=== PATIENT | male | born 1950 | race Caucasian/White ===

== ENCOUNTER 2024-03-31 13:31 | Outpatient (REF) | payer MEDICARE, SELFPAY ==
--- NOTE | ~2024-03-31 | XR_ITS ---
EXAMINATION: XR LUMBAR SPINE CLINICAL INFORMATION: Reason for Exam M48.061 - Spinal stenosis, lumbar region without neurogenic claudication COMPARISON: None TECHNIQUE: Frontal lateral and coned-down L5-S1 frontal lateral,, flexion-extension, 4 views. FINDINGS: Five [id number] lumbar vertebrae were identified maintaining normal height, mild levoscoliosis, mild posterior spondylolisthesis of L1 on L2, L2 on L3 and L3 on L4,. Loss of disc height and developed osteophytes from the edges of endplates at multiple levels suggest underlying severe degenerative disc disease. Paravertebral soft tissues are unremarkable. There are radiolucencies, most likely superimposed bowel gas.. No radiographic evidence of osteolytic or osteoblastic lesions. XR/XR lumbar spine 4V min IMPRESSION: * No fracture. * Mild levoscoliosis. * Loss of disc height and developed osteophytes from the edges of endplates suggest underlying severe degenerative disc disease.
== END 2024-03-31 13:32 | disposition home or self-care (01) ==
LOC: HO.HOSX 13:31
PROVIDERS: Visit Provider Physician Assistant
DX: M48.061 Spinal stenosis, lumbar region without neurogenic claudication (principal)
CPT/HCPCS: 72110; 99202

== ENCOUNTER 2024-03-31 13:31 | Outpatient (AMB) | payer MEDICARE, SELFPAY ==
--- NOTE | 2024-03-31 14:26 | HO.SPINEOV ---
Intake Visit Reasons: Lumbar radiculopathy Intake Note: Mr. Severino is here today c/o back pain. 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 It does not go below his knee. He underwent physical therapy for 6 weeks. He is tried activity modifications. He is tried cnxc-iiz-mrdnedy medications such as Tylenol and leave but nothing touches it. He has not done any injections yet. The pain is aggravated with standing and walking and goes away when he sits. He underwent an MRI showing severe stenosis at L3-4 and L4-5 as well as left L4 foraminal stenosis and he comes in today see us for an evaluation. PMH: He is reasonably healthy, he has had both knees replaced and did well with that, history of BPH, hypertension but denies any problem with his heart, lungs, liver, kidneys, intestine, cancer, bleeding disorders, previous lumbar surgery, abdominal surgery etc.. Social hx: He does not smoke, drink or use any recreational drugs Medications: finasteride, aspirin, atenolol, hydrochlorothiazide Allergies: none Physical exam: awake alert oriented no acute distress, he has full strength of bilateral upper and lower extremities, absent reflexes at the patella bilaterally with surgical scars on both knees that are well healed. Imaging review: Lumbar MRI done at [facility] shows severely degenerative discs at L1-2,L2-3, L3-4 and L4-5, he has severe stenosis at L4-5, moderate to severe stenosis at L3-4. He has severe left L4 foraminal stenosis. I did standing flexion-extension x-rays here in the office and this does not show any signs of instability but in the vertical position there is a slight accentuation and a small dextroscoliotic curvature due to collapse of the left L4-5 disc space. Impression: 73-year-old male presents with chronic low back pain, but acutely he has been dealing with the last few months a left L4 radiculopathy which goes down into his knee. He is very clear about the fact that his back pain is not the reason he has here in the office and it would not have been a reason to even have an MRI. The primary complaint here is the left buttock going into the left anterior lateral thigh pain. He has severe stenosis at L3-4 and L4-5 with severe left L4 foraminal stenosis secondary to disc collapse on the left side. I reviewed all his imaging with him and discussed the fact that there are 2 potential approaches here. The 1st would be a simple decompression where the L3-4 and L4-5 spaces could be cleaned up with a simple decompression and a left L4 foraminotomy. However, we would need to be aware that there is the potential of recurrent narrowing of the L4 foramen because of the severe disc degeneration. This may ultimately require placement of a interbody cage and pedicle screw fixation. I will review all the imaging and get back to the patient with a final plan once Dr. Woods has a chance to review his case. The patient is interested in moving forward with surgery because of the amount of pain he is in so we will try to expedite things for him. Thank you for allowing us to care for your patient. The total time spent with this visit with this patient was 45 minutes reviewing history, physical exam, lumbar MRI imaging review, and implementation of treatment plan or further diagnostic testing Jeferson Woods MD,PhD [facility] Orders: Orders XR lumbar spine 4V min Today M48.061 - Spinal stenosis, lumbar region without neurogenic claudication Coding Level of Care Code New Pt Level 4 (57012) Diagnoses Lumbar stenosis M48.061
== END 2024-03-31 15:22 | disposition home or self-care (01) ==
PROVIDERS: Referring Provider Internal Medicine; Visit Provider Physician Assistant
DX: M48.061 Spinal stenosis, lumbar region without neurogenic claudication (principal)
CPT/HCPCS: 99204

== ENCOUNTER 2024-06-18 12:37 | Outpatient (AMB) | payer MEDICARE, SELFPAY ==
--- NOTE | 2024-06-18 12:43 | HO.SPINEOV ---
Intake Visit Reasons: Discuss surgery Intake Note: Mr. Severino is here to Discuss Surgery. Allergies No Known Allergies Allergy (Verified 06/18/24 12:59) Assessment & Plan Assessment & Plan (1) Lumbar stenosis: Code(s): M48.061 - Spinal stenosis, lumbar region without neurogenic claudication Category: Medical Qualifiers: Neurogenic claudication status: with neurogenic claudication Qualified Code(s): M48.062 - Spinal stenosis, lumbar region with neurogenic claudication Plan: On 06/18/2024 I saw for preoperative visit Landon Severino. He is scheduled to undergo a left L3-4 and L4-5 decompression with L4 foraminotomy. Today's states his symptoms have predominantly on the left side but the right side is not completely symptom free. I explained to him that I will also decompress the right side through the left-sided approach. All questions were answered. He is scheduled for 06/26/2024. He will discontinue his baby aspirin. I spent 15 minutes in his consult answering questions. Red Woods MD, PhD Spine Fellowship Trained Neurosurgeon Director, [facility] Coding Level of Care Code Est Pt Level 2 (56277) Diagnoses Spinal stenosis of lumbar region with neurogenic claudication M48.062 Neurogenic claudication status: with neurogenic claudication
== END 2024-06-18 13:27 | disposition home or self-care (01) ==
PROVIDERS: Visit Provider Neurological Surgery
DX: M48.062 Spinal stenosis, lumbar region with neurogenic claudication (principal)
CPT/HCPCS: 99212

== ENCOUNTER → 2024-06-18 12:37 | Outpatient (BNVA) | payer MEDICARE, SELFPAY | PROVIDERS: Visit Provider Neurological Surgery | DX: M48.062 Spinal stenosis, lumbar region with neurogenic claudication (principal) | CPT/HCPCS: 99212 ==

== ENCOUNTER 2024-06-26 05:45 | Day surgery (SDC) | payer MEDICARE, SELFPAY ==
[2024-06-12 08:24] VITALS: BMI 35.3
--- NOTE | 2024-06-24 13:48 | P.CONAN_ITS ---
Documented by User: Claudine Aguirre NP 06/25/24 10:00 HPI - Anesthesia Eval Consult details Narrative: 73yo M for LEFT L3-4 Decompression and LEFT L4-5 Foraminotomy Medically optimized per PCP [facility] Active Problems Active Problems: All Active Problems Lumbar stenosis (Acute) Past Medical History Medical History Pre-diabetes Mixed hyperlipidemia Osteoarthritis Lumbar radiculopathy BPH (benign prostatic hyperplasia) HTN (hypertension) Surgical History Surgical History History of carpal tunnel release H/O colonoscopy History of total bilateral knee replacement Social History Social History Are you a primary laboratory animal care veterinarian to a significant other at home: No Do you presently have visiting nurse or other home services: No Patient Tobacco Use Status: Never used Tobacco Use of substances other than those prescribed or required for medical reasons: No Have you been hit, kicked, punched, or otherwise hurt by someone within the past year? If so, by whom?: No Spiritual Healthcare Practices: none Scientology Healthcare Practices: none Cultural Healthcare Practices: none Are you DNR?: No Advance Directives: No (states is primary contact) Advance Directives Information Provided: Yes (brochure mailed) Advance Directives on File: No Recently lost weight without trying: No Eating poorly because of decreased appetite: No Nutrition Risks: No Nutritional Risk Poor oral hygiene: No (dental crowns) Meds Allergies Allergy/AdvReac Type Severity Reaction Status Date / Time No Known Allergies Allergy Verified 06/26/24 06:08 Home Medications ?Medication ?Instructions ?Recorded ?Confirmed ?Last Taken ?Type atenolol 50 mg tablet 50 mg PO QAM 06/11/24 06/12/24 Unknown History finasteride 5 mg tablet 5 mg PO QAM 06/11/24 06/12/24 Unknown History gabapentin 300 mg capsule 900 mg PO QAM 06/11/24 06/12/24 Unknown History triamterene 37.5 1 cap PO QAM 06/11/24 06/12/24 Unknown History mg-hydrochlorothiazide 25 mg capsule aspirin 81 mg tablet,delayed 81 mg PO QAM 06/12/24 06/12/24 Unknown History release gabapentin 300 mg capsule 600 mg PO BEDTIME 06/12/24 06/12/24 Unknown History Exam Height,Weight and Vital Signs: Height 5 ft 9 in Weight 108.409 kg Pertinent Lab Results Pertinent Lab Results: BMP and CBC 03/2024 WNL (H&H elevated) from outside facility (in PCP note) Narrative Narrative: EKG 05/2024 SR @ 66 Cannot r/o anterior infarct Inferior infarct, old Min volt for LVH No change since 2018 Assessment and Plan Assessment Anesthesia Assessment: Chart Reviewed Documented by User: Maritza Escalante MD 06/26/24 07:09 [facility] Past Medical History Medical History Pre-diabetes Mixed hyperlipidemia Osteoarthritis Lumbar radiculopathy BPH (benign prostatic hyperplasia) HTN (hypertension) Family History Family history of problems with anesthesia: No Surgical History Surgical History History of carpal tunnel release H/O colonoscopy History of total bilateral knee replacement History of Problems with Anesthesia: No Social History Social History Are you a primary laboratory animal care veterinarian to a significant other at home: No Do you presently have visiting nurse or other home services: No Patient Tobacco Use Status: Never used Tobacco Use of substances other than those prescribed or required for medical reasons: No Have you been hit, kicked, punched, or otherwise hurt by someone within the past year? If so, by whom?: No Spiritual Healthcare Practices: none Scientology Healthcare Practices: none Cultural Healthcare Practices: none Are you DNR?: No Advance Directives: No (states is primary contact) Advance Directives Information Provided: Yes (brochure mailed) Advance Directives on File: No Recently lost weight without trying: No Eating poorly because of decreased appetite: No Nutrition Risks: No Nutritional Risk Poor oral hygiene: No (dental crowns) Meds Allergies Allergy/AdvReac Type Severity Reaction Status Date / Time No Known Allergies Allergy Verified 06/26/24 06:08 Home Medications ?Medication ?Instructions ?Recorded ?Confirmed ?Last Taken ?Type atenolol 50 mg tablet 50 mg PO QAM 06/11/24 06/12/24 Unknown History finasteride 5 mg tablet 5 mg PO QAM 06/11/24 06/12/24 Unknown History gabapentin 300 mg capsule 900 mg PO QAM 06/11/24 06/12/24 Unknown History triamterene 37.5 1 cap PO QAM 06/11/24 06/12/24 Unknown History mg-hydrochlorothiazide 25 mg capsule aspirin 81 mg tablet,delayed 81 mg PO QAM 06/12/24 06/12/24 Unknown History release gabapentin 300 mg capsule 600 mg PO BEDTIME 06/12/24 06/12/24 Unknown History Exam Airway Mallampati Class: II (caps throughout) TM Dist: >3cm Neck ROM: Full Heart: rrr Lungs: cta Assessment and Plan Assessment Anesthesia Assessment: Anesthesia Plan Discussed Final Anesthetic Review Family History of Problems with Anesthesia: No History of Problems with Anesthesia: No NPO: Yes ASA Class: II Final Preanesthetic Review: No Changes in Pt Med Stat, Meds/Allgs Chart Reviewed and Consent Obtained/Reviewed Patient Risk: Intermediate Procedure Risk: Intermediate Anesthetic Plan Anesthetic Plan: GA Disposition: Standard PACU
[2024-06-26] VITALS (7 sets, daily range): BP systolic 111–147; BP diastolic 67–92; PULSE 65–94; RESP 12–18; TEMP 36.2–36.4; O2SAT 91–97; BMI 34.1
[2024-06-26] MEDS: Gabapentin 300 MG CAPSULE PO (06:22)
[2024-06-26] MEDS: methocarbamoL 750 MG TABLET PO (06:22)
[2024-06-26] MEDS: 0.9 % Sodium Chloride 500 ML 50 ML IV (06:30)
--- NOTE | 2024-06-26 07:03 | P.HPSUR_ITS ---
Pre-Procedural Eval Section A - 24 Hr Update-Section A only Date of Service: 06/26/24 The patient is an INPATIENT: No Changes since office visit: No Cold of Flu in the past 2 weeks, No New Medical Problems, No Changes in Medication and No Patient answered all questions The patient has been examined within 24 hours of the surgical procedure. The History & Physical has been completed within 30 days and I have reviewed it.: No Section B - Complete if H&P > 30 days Chief Complaint: Spinal stenosis, lumbar region without neurogenic Allergies: Allergies Allergy/AdvReac Type Severity Reaction Status Date / Time No Known Allergies Allergy Verified 06/26/24 06:08 Review of Systems Sugical H&P ROS: Negative: Constitution, Cardiovascular, Respiratory, Neurological, Psychiatric, Hem-Onc, Allergic/Immunologic, Gastrointestinal, Genitourinary, Musculoskeletal, Integumentary, Endocrine and Eyes/Ears/Nose/Thro at Exam Surgical H&P Exam: Normal: HEENT, Normal: Heart, Normal: Lungs, Normal: Extremities, Normal: Abdomen, Normal: Skin and Normal: Neurological (awake, alert, oriented x 3 ) Plan Diagnosis/Plan: Unchanged left sided approach for bilat L3-4, L4-5 decompression, L4 foraminotomy Time Spent With Patient Time: Total time managing care of this patient today __6__ minutes.
--- NOTE | 2024-06-26 07:39 | P.DS_ITS ---
DS: Providers Provider Date of Service: 06/26/24 Date of discharge: 06/26/24 Primary care physician: Nonstaff Physician Admitting clinician: Red Woods DS: Diagnosis Discharge Diagnosis (1) Lumbar stenosis: Status: Acute DS: Summary Time Attestation Discharge Coordination Time (in mins): 5 Quality: Safe Use of Opioids Does Pt have an Active Cancer Diagnosis on the Problem List?: No Quality: Stroke Does the patient have a stroke diagnosis?: No Physical Exam Vital Signs: Vital Signs: Last Vital Signs Temp 97.2 F 06/26/24 06:12 Pulse 65 06/26/24 06:12 Resp 16 06/26/24 06:12 BP 145/92 H 06/26/24 06:12 Pulse Ox 97 06/26/24 06:12 O2 Del Method Room Air 06/26/24 06:12 BMI result Body Mass Index 34.1 Discharge Plan Discharge Patient Disposition: Home, Self-Care Referrals: Physician,Nonstaff [Primary Care Provider] - 1 Week Discharge Medications: New docusate sodium [Colace] 100 mg capsule 100 mg PO BID Qty: 20 0RF oxycodone 5 mg tablet 5 mg PO Q4H PRN (Reason: pain) Qty: 30 0RF Rx Instructions: Partial Fill upon patient request. Continued triamterene-hydrochlorothiazid 37.5-25 mg capsule 1 cap PO QAM gabapentin 300 mg capsule 900 mg PO QAM atenolol 50 mg tablet 50 mg PO QAM finasteride 5 mg tablet 5 mg PO QAM gabapentin 300 mg capsule 600 mg PO BEDTIME Held aspirin 81 mg Tablet,Delayed Release (Dr/Ec) 81 mg PO QAM Hold Instructions: Resume on 07/03/24. You may resume aspirin 1 week after surgery Discharge Orders: Discharge Order (Routine); Ordered 06/26/24 Ordered By: Jeferson Talley Diet: Advance to usual diet Activity on Discharge: As tolerated Activity Restrictions/Additional Instructions: After your spinal surgery we ask you to observe the following restrictions/guidelines: Activity: It is normal to feel some discomfort as you increase your activity, but that will improve with time. We ask you avoid heavy lifting or acitivities that cause pain. As a general rule, 8lbs is a safe limit for lifting right after surgery. Walk as much as you feel comfortable but not to exhaustion. You will feel extra tired the first few days after surgery. Stay well hydrated. It is OK to walk up and down stairs You may return to driving when you are off narcotics (such as vicodin, oxy codone, dilaudid, etc), and you are back to normal functional capacity. If you have any concerns please check with office before driving. Return to work is specific to each patient and each surgery, so please speak with your doctor/PA at first follow up. Please bring paperwork such as FMLA at that time if you need it filled out. Medications: You may resume aspirin 1 week after surgery For optimum pain control, it is best to start with a combination of 500 mg of Tylenol every 4 hours with 600 mg of Motrin every 8 hours, and use narcotics as needed in between for breakthrough pain. We will give you a short supply of narcotics after surgery (usually one weeks worth). If you need more please call the office but do not use more than prescribed. You will need to give our office 48 hours notice if you need narcotics refilled and we do not fill narcotics on weekends or evenings. If you are on a narcotic, it is a good idea to take a stool softener such as colace or senna to avoid constipation If you take blood thinner such as aspirin, Plavix, Coumadin, Effient, Eliquis etc for conditions such as Afib, DVT, Pulmonary embolus, coronary disease, stents etc please speak with your surgeon about specific details as to when you can resume these medications. You can resume NSAIDs on post op day 1 (eg: Motrin, Naproxen, etc). Follow up: Please call the office, , after surgery to arrange a 3 week follow up for wound check. Wound Care: You may remove your dressing on the first day after surgery. ?You may ?leave open to air. Please do not remove the steri strips underneath. they will fall off on their own in one week. IT IS NORMAL FOR THE WOUND TO OOZE OR BE BLOODY FOR A FEW DAYS AFTER SURGERY. ?IF THIS HAPPENS JUST PLACE NEW DRESSING OVER IT TO AVOID STAINING CLOTHES. You may shower on post op day # 1 We ask that you do not let the water soak the wound. If it does get wet, just towel dry lightly. Please do not scrub your incision or place any type of chemical/ointment on the wound. No tub baths, pools or jacuzzis for one month. If you have any leaking or redness from your wound, or fevers, please call office Print Language: [place]ese
--- NOTE | 2024-06-26 09:00 | P.OP_ITS ---
Operative Note Operative Note Date of Service: 06/26/24 Narrative: Preoperative Diagnosis: L3-4 and L4-5 spinal stenosis/lateral recess stenosis/neural foraminal stenosis Operation: Partial L3, complete L4 and partial L5 bilateral Laminotomy, Partial facetectomy and left L4 foraminotomy with use of microscope Consent Informed Consent was obtained for this operation. I have explained the nature, purpose and benefits of the operation. I have discussed the risks and benefit of the operation including possible complications or adverse events with patient/family. Alternative(s) were discussed with the patient with their relative benefits and risks as well as the consequences of not accepting the operation were included in obtaining consent. Surgeon: MARKUS CERRATO MD, PHD Procedure Assisted By: Jeferson Dunne Description of Procedure This from from neurogenic claudication, predominantly left side with the MRI showing severe spinal stenosis at L3-4 and L4-5 and severe left L4 foraminal stenosis. The patient was offered a decompression. The procedure complications were explained. The patient was consented. The patient was brought to the operating room and endotracheally intubated. The patient was turned in prone position on the Gurjit frame. Prep and drape was done followed by timeout. The Physician expanded function dental assistant provided access. A mid lumbar incision was made followed by release of the paravertebral muscle on the left side to expose the L3-4 and L4-5 lamina and facet joints. An intraoperative x-ray was obtained to confirm the correct level. The microscope was brought in. I took over the procedure. The high-speed drill was used to do a left partial L3 laminotomy and complete L4 l laminectomy until flavum ligament was reached. A #2 Kerrison was used to expand the laminotomy near flush to the pedicles and to include a partial facetectomy. The flavum ligament was opened and resected with a #3 Kerrison to decompress the underlying thecal sac. The flavum ligament was removed to decompress the lateral recess. The left L4 nerve root was followed into the foramen after which the partial facetectomy was extended and a left L4 foraminotomy was performed decompress the L4 nerve root. The ligamentum flavum was resected towards the L5 lamina and a partial L5 laminotomy was done.. The L5 nerve root was decompressed in the left lateral recess. The patient was turned contralaterally. The spinous processes of L3 and L4 were undercut and in this w ay I was able to remove more flavum ligament contralaterally to decompress the thecal sac bilaterally. A long nerve hook could be easily passed along the medial side of the pedicles as a sign of adequate decompression. The microscope was removed. Hemostasis was done. The physician expanded function dental assistant close the Incision in 2 layers. Steri-Strips were used to approximate incision. An OpSite with Tegaderm was used to cover the incision. All sponge needle counts were correct. Patient was extubated and transported in stable is to recovery room. Anesthesia: General Estimated Blood Loss (ml): 40 mL Complications: None Duration of Surgery: Under 70 Minutes Postoperative Plan: Discharge to home
[2024-06-26] MEDS: oxyCODONE HCl Immed Release 5 MG TABLET PO (09:52)
== END 2024-06-26 11:12 | disposition home or self-care (01) ==
PROVIDERS: Visit Provider Neurological Surgery
PROC: (CPT 63047; principal; 2024-06-26 07:30)
DX: M48.062 Spinal stenosis, lumbar region with neurogenic claudication (principal); G89.29 Other chronic pain; I10 Essential (primary) hypertension; E78.2 Mixed hyperlipidemia; R73.03 Prediabetes; Z79.82 Long term (current) use of aspirin; Z79.899 Other long term (current) drug therapy
CPT/HCPCS: 63047; 63048; J0131; J0690; J1100; J1885; J2003; J2250; J2405; J2704; J3010

== ENCOUNTER → 2024-06-26 05:45 | Outpatient (BNV) | payer MEDICARE, SELFPAY | PROVIDERS: Visit Provider Neurological Surgery | DX: M48.062 Spinal stenosis, lumbar region with neurogenic claudication (principal) | CPT/HCPCS: 63047; 63048; 99499 ==

== ENCOUNTER 2024-07-17 09:44 | Outpatient (AMB) | payer MEDICARE, SELFPAY ==
--- NOTE | 2024-07-17 09:47 | A.OFFVIS_ITS ---
Intake Visit Reasons: 1st post op Intake Note: please call pt Pleating Machine Operator Required: No Allergies No Known Allergies Allergy (Verified 06/26/24 06:08) [facility] Medical History Pre-diabetes Mixed hyperlipidemia Osteoarthritis Lumbar radiculopathy BPH (benign prostatic hyperplasia) HTN (hypertension) Surgical History (Updated 07/17/24 @ 10:07 by KELLI Herrera) History of carpal tunnel release H/O colonoscopy History of total bilateral knee replacement Social History Are you a primary critical care paramedic to a significant other at home: No Do you presently have visiting nurse or other home services: No Patient Tobacco Use Status: Never used Tobacco Telehealth Telehealth Telehealth Platform: Telephone Location of provider rendering services: practice address Location of patient: address on file Patient Identification confirmed using: Name, : Yes Telehealth method: voice only Patient verbally consented to treatment: Yes Patient verbally consented to billing insurance company: Yes Patient informed of any privacy concerns related to visit: Yes Assessment & Plan Assessment & Plan (1) Status post lumbar spine surgery for decompression of spinal cord: Code(s): Z98.890 - Other specified postprocedural states Category: Surgical Plan Operation: Partial L3, complete L4 and partial L5 bilateral Laminotomy, Partial facetectomy and left L4 foraminotomy I reached out to Landon today for a telephone visit to conduct his 1st postoperative appointment as [place] and requested this. To recap he initially presented to clinic for low back pain shooting into into his left buttock into his anterior lateral thigh into his knee. He reports that his pain has largely resolved since surgery. He gets occasional twinges of pain in his low back for which he treats with a single dose of Tylenol. He has been essentially back to regular activity. We discussed the postoperative healing course and I encouraged him to refrain from lifting more than 20 lb until he is about 2 months out from surgery. It sounds like he is already doing much more than that at this time. He said that he has been looking at his incision site daily in it appears closed and well healing with no signs of drainage or issue. I answered all of his questions. I informed correct that we do not need to have him come back to clinic for p ostoperative follow-up. He may call us and follow up on an as-needed basis. Andrez Woods MD,PhD [facility] Coding Level of Care Code Global (57219) Diagnoses Status post lumbar spine surgery for decompression of spinal cord Z98.890
== END 2024-07-17 10:28 | disposition home or self-care (01) ==
LOC: HO.HNS 09:44
PROVIDERS: Visit Provider Physician Assistant
DX: Z98.890 Other specified postprocedural states (principal)
CPT/HCPCS: 99024

== ENCOUNTER → 2024-07-17 09:44 | Outpatient (BNVA) | payer MEDICARE, SELFPAY | PROVIDERS: Visit Provider Physician Assistant | DX: Z48.89 Encounter for other specified surgical aftercare (principal); Z98.890 Other specified postprocedural states | CPT/HCPCS: 99212 ==